=== PATIENT | male | born 1995 ===

== ENCOUNTER 2017-11-14 17:55 | Emergency (ER) | payer SELFPAY ==
--- NOTE | 2017-11-14 19:11 | RAD ---
INDICATION: LEFT elbow pain post fall on outstretched arm. COMPARISON: No relevant prior exams available on the [facility] for comparison. TECHNIQUE: AP, lateral, and oblique views LEFT elbow. REPORT: Negative for significant fat pad displacement to indicate effusion. Normal articular alignment. No cortical disruption or suspicious trabecular irregularity to suggest fracture. Unremarkable soft tissue contours. IMPRESSION: No radiographic evidence for traumatic injury of the LEFT elbow.
[2017-11-14 19:42] VITALS: BP 148/84
--- NOTE | 2017-11-14 20:01 | ED ---
Dorian Bonner Stephanie, scribed for Atul Plunkett MD on 11/14/17 at 1818 . Upper Extremity Pain - HPI Summary HPI Summary: The pt is a 22 y/o M presenting to the ED with c/o L elbow pain s/p falling over a 4 ft fence at 16:50. He denies head trauma. Aggravating factors include straightening the elbow joint. - History of Current Complaint Chief Complaint: EDExtremityUpper Stated Complaint: LT ARM INJURY Time Seen by Provider: 11/14/17 18:10 Hx Obtained From: Patient Mechanism Of Injury: Fall From Height Of: - 4 ft Onset/Duration: Started Hours Ago, Still Present Timing: Constant Aggravating Factor(s): Extension Alleviating Factor(s): Nothing - Allergies/Home Medications Allergies/Adverse Reactions: Allergies Allergy/AdvReac Type Severity Reaction Status Date / Time oxycodone [From Percocet] Allergy Itching Verified 11/14/17 18:03 Home Medications: Home Medications Methotrexate* 200 mg .SEE ORDER WEEKLY 11/14/17 [History Confirmed 11/14/17] PMH/Surg Hx/FS Hx/Imm Hx Endocrine/Hematology History: Denies: Hx Diabetes Cardiovascular History: Denies: Hx Hypertension, Hx Pacemaker/ICD History: Denies: Hx Renal Disease Sensory History: Denies: Hx Hearing Aid Psychiatric History: Denies: Hx Panic Disorder - Surgical History Surgery Procedure, Year, and Place: 12/26/2015-EXPLORATORY SURGERY LEFT KNEE. RIGHT ANKLE SURGERY TO CLEAN CARTILADGE 2011 Infectious Disease History: No Infectious Disease History: Denies: Traveled Outside the [place] in Last 30 Days - Family History Known Family History: Negative: Renal Disease - Social History Occupation: Student Lives: Dormitory/Roommates Alcohol Use: Occasionally Review of Systems Negative: Fever Positive: Other - pain at L elbow Negative: Slurred Speech All Other Systems Reviewed And Are Negative: Yes Physical Exam - Summary Physical Exam Summary: Appearance: The patient is well-nourished in no acute distress and in no acute pain. Skin: The skin is warm and dry and skin color reflects adequate perfusion. HEENT: The head is normocephalic and atraumatic. The pupils are equal and reactive. The conjunctivae are clear and without drainage. Nares are patent and without drainage. Mouth reveals moist mucous membranes and the throat is without erythema and exudate. The external ears are intact. The ear canals are patent and without drainage. The tympanic membranes are intact. Neck: the neck is supple with full range of motion and non-tender. There are no carotid bruits. There is no neck vein distension. Respiratory: Chest is non-tender. Lungs are clear to auscultation and breath sounds are symmetrical and equal. Cardiovascular: Heart is regular rate and rhythm. There is no murmur or rub auscultated. There is no peripheral edema and pulses are symmetrical and equal. Abdomen: The abdomen is soft and non-tender. There are normal bowel sounds heard in all four quadrants and there is no organomegaly palpated. Musculoskeletal: There is no back tenderness noted. There is tenderness with ROM and palpation of L elbow. There is good capillary refill. There is no peripheral edema or calf tenderness elicited. Neurological: Patient is alert and oriented to person, place and time. The patient has symmetrical motor strength in all four extremities. Cranial nerves are grossly intact. Deep tendon reflexes are symmetrical and equal in all four extremities. Psychiatric: The patient has an appropriate affect and does not exhibit any anxiety or depression. Triage Information Reviewed: Yes Vital Signs On Initial Exam: Initial Vitals Temp Pulse Resp BP Pulse Ox 99.1 F 98 17 125/76 97 11/14/17 18:00 11/14/17 18:00 11/14/17 18:00 11/14/17 18:00 11/14/17 18:00 Vital Signs Reviewed: Yes Diagnostics - Vital Signs Vital Signs Temp Pulse Resp BP Pulse Ox 11/14/17 18:00 99.1 F 98 17 125/76 97 - Laboratory Lab Statement: Any lab studies that have been ordered have been reviewed, and results considered in the medical decision making process. - Radiology Elbow XRay Xray Interpretation: No Acute Changes Radiology Interpretation Completed By: Radiologist - No radiographic evidence for traumatic injury of the LEFT elbow. ED physician has reviewed this report. Re-Evaluation - Re-Evaluation First Eval Re-Evaluation Time: 19:20 Change: Unchanged - ED physician discussed plan of discharge with the pt and he understands and agrees. Course/Dx - Course Course Of Treatment: Mr. Duncan presented after hurting his left elbow falling onto his outstretched arm. He was tender to active and passive ROM but was able to do it. N/V/M were intact distally. X-ray was negative. He was placed in a sling and recommended conservative treatment and F/U [facility]. - Diagnoses Provider Diagnoses: Elbow sprain Discharge - Sign-Out/Discharge Documenting (check all that apply): Discharge/Admit/Transfer - Discharge - Discharge Plan Condition: Stable Disposition: HOME Patient Education Materials: Elbow Sprain (ED) Referrals: [facility] - [facility] [Primary Care Provider] - 1 Week Additional Instructions: Return to the ED for new or worsening symptoms. ED physician recommends ibuprofen for pain. - Billing Disposition and Condition Condition: STABLE Disposition: HOME The documentation as recorded by the Dorian barbosa Stephanie accurately reflects the service I personally performed and the decisions made by , Atul Plunkett MD.
== END 2017-11-14 19:43 | disposition home or self-care (01) ==
LOC: ED 17:55
DX: S53.402A Unspecified sprain of left elbow, initial encounter (principal); W01.0XXA Fall on same level from slipping, tripping and stumbling without subsequent striking against object, initial encounter; Y93.9 Activity, unspecified; Y92.89 Other specified places as the place of occurrence of the external cause; Z88.5 Allergy status to narcotic agent
CPT/HCPCS: 99282